=== PATIENT | male | born 1965 | race Caucasian/White ===

== ENCOUNTER 2020-12-16 19:05 | Emergency (ER) | payer MEDICAID, OTHER ==
[~2020-12-16] VITALS: Ht 172.7 cm; Wt 78.8 kg
--- NOTE | 2020-12-16 20:00 | NUR ---
PT REPORTS DRINKING 30 BEERS PER DAY FOR THE LAST 4 DAYS.
[2020-12-16] MEDS ORDERED: LORazepam 1 MG tablet PO ONE (20:25)
[2020-12-16 20:59] LABS: URINE AMPHETAMINE SCREEN NEGATIVE (Neg); URINE BARBITUATE SCREEN NEGATIVE (Neg); URINE BENZODIAZEPINES SCREEN NEGATIVE (Neg); URINE CANNABINOID SCREEN POSITIVE (Neg); URINE COCAINE SCREEN NEGATIVE (Neg); URINE METHADONE SCREEN NEGATIVE (Neg); URINE OPIATE SCREEN NEGATIVE (Neg); URINE PHENCYCLIDINE SCREEN NEGATIVE (Neg)
--- NOTE | 2020-12-16 21:03 | NUR ---
PERSHING MISSILE CREWMEMBER TRIES TO CLARIFY WITH PT ABOUT HIS DRINKING, HE STATES HE HAS DRANK 30 BEERS FOR THE LAST 4 DAYS BUT HAS NOT DRANK BEFORE THAT. wHEN PERSHING MISSILE CREWMEMBER ASKS IF HE COULD CLARIFY IF HE HAS A PRIOR DRINKING HISTORY BEFORE THIS PAST 4 DAYS HE STATES, "ON AND OFF" BUT THEN WALKS AWAY AND SAYS "I HAVE WITHDRAWALS." HE STATES I WAS SUPPOSE TO HOP STRAINER A PRESCRITION FOR DIAZEPAM TODAY AND I DIDN'T CAN I HAVE ONE ? PERSHING MISSILE CREWMEMBER INFORMS PT HE WAS JUST GIVEN ATIVAN 25 MINUTES AGO, HE SAYS, "YEA BUT IT ISNT WORKING AT ALL." PERSHING MISSILE CREWMEMBER ENCOURAGES PT TO GIVE THE MEDICATION A CHANCE TO WORK
[2020-12-16 21:15] LABS: ALANINE AMINOTRANSFERASE 47 U/L (12-78); ALBUMIN 4.3 G/DL (3.4-5.0); ALBUMIN/GLOBULIN RATIO 1.1 (1.1-1.5); ALKALINE PHOSPHATASE 94 IU/L (46-116); ANION GAP 11 (8-16); ASPARTATE AMINO TRANSFERASE 29 U/L (10-37); BILIRUBIN,TOTAL 0.3 MG/DL (0.1-1.0); BLOOD UREA NITROGEN 3 MG/DL (7-18); BUN/CREATININE RATIO 3.8 (5.4-32.0); CALCIUM 8.8 MG/DL (8.5-10.1); CHLORIDE 99 MMOL/L (99-107); CREATININE 0.79 MG/DL (0.60-1.10); ETHANOL 0.201 GM/DL (0.0-0.010); GLUCOSE 107 MG/DL (70-104); POTASSIUM 3.1 MMOL/L (3.5-5.1); SODIUM 136 MMOL/L (135-145); TOTAL CARBON DIOXIDE 26.5 MMOL/L (24-32); TOTAL PROTEIN 8.1 G/DL (6.4-8.2); eGFR > 90 ML/MIN
[2020-12-16] MEDS ORDERED: DIAZ10TA5 PO (21:16)
[2020-12-16] MEDS ORDERED: ZOLP10TA PO (21:16)
[2020-12-16] MEDS ORDERED: LISI-600 PO (21:16)
--- NOTE | 2020-12-16 21:24 | NUR ---
WENT THROUGH EXT MED HISTORY W/ PT. "A LOT OF THAT STUFF I DON'T TAKE IT JUST DOESN'T WORK, I STOPPED TAKING THE LATUDA." HE STATES ALL THAT HE TAKES NOW IS DIAZEPAM, ZOLPIDEM AND LISINOPRIL.
--- NOTE | 2020-12-16 21:27 | NUR ---
PT STATES THAT BEFORE HE DRANK 30 BEERS FOR THE PAST 4 DAYS THAT HE DIDN'T BEEN DRINKING FOR "1 OR 2 MONTHS". HE STATES "I HATE THIS FEELING I JUST WISH I COULD END IT ALL. I TRIED TAKING AMBIEN LAST WEEK TO END IT BUT IT DIDN'T WORK."
[2020-12-16 21:29] LABS: BASOPHILS % (AUTO) 0.2 % (0-1); EOSINOPHILS % (AUTO) 0.2 % (0-6); HEMATOCRIT 44.2 % (42.0-52.0); HEMOGLOBIN 15.6 g/dl (14.0-17.9); LYMPHOCYTES # (AUTO) 1.7 X10'3 (1.1-4.8); LYMPHOCYTES % (AUTO) 23.7 % (21-51); MEAN CORPUSCULAR HEMOGLOBIN 32.5 PG (27.0-31.0); MEAN CORPUSCULAR HGB CONC 35.2 g/dL (33.0-36.5); MEAN CORPUSCULAR VOLUME 92.2 FL (78-98); MEAN PLATELET VOLUME 8.2 FL (7.4-10.4); MONOCYTES # (AUTO) 1.1 X10'3 (0-0.9); MONOCYTES % (AUTO) 14.3 % (2-12); NEUTROPHILS # (AUTO) 4.5 X10'3 (1.8-7.7); NEUTROPHILS % (AUTO) 61.6 % (42-75); PLATELET COUNT 354 X10'3 (140-440); RED BLOOD COUNT 4.79 X10'6 (4.70-6.10); RED CELL DISTRIBUTION WIDTH 13.4 % (11.5-14.5); WHITE BLOOD COUNT 7.4 X10'3 (4.5-11.0)
[2020-12-16] MEDS ORDERED: zolpidem 5mg tablet PO ONE (21:50)
--- NOTE | 2020-12-16 22:33 | NUR ---
lying on left side, eyes closed even and unlabored respirations. No signs of distress.
[2020-12-17] MEDS: diazepam 5mg tablet PO PRN ×2 (01:14→08:09)
--- NOTE | 2020-12-17 01:45 | NUR ---
Pt request PRN valium for anxiety, medication given
--- NOTE | 2020-12-17 03:00 | NUR ---
Pt wakes up to use the restroom and requests "more medication for my withdrawals" pt reminded he can only get valium 10mg twice a day and he has already taken one dose.
--- NOTE | 2020-12-17 05:30 | NUR ---
Pt wakes up again uses the restroom and asks if he can get more medication for "withdrawals." no tremors observed, pt's BP is 147/78. Assessment Technician asks if at home he was taking his medication more frequently than prescribed and he says "no." Assessment Technician encourages him to try to lay down and he agrees,.
[2020-12-17] MEDS ORDERED: potassium Cl 20 mEq SR tablet PO STA (05:50)
--- NOTE | 2020-12-17 06:33 | NUR ---
PT SLEEPING AND IS NOT SHOWING ANY SIGNS OF DISTRESS OR DISCOMFORT. WILL CONT TO MONITOR.
[2020-12-17] MEDS ORDERED: lisinopril 20mg tablet PO SCH (08:00)
--- NOTE | 2020-12-17 08:12 | NUR ---
PT SAYS HE IS STILL HAVING SLIGHT FEELINGS OF A PANICK ATTACK AND ANXIETY, BUT THE SUICIDAL FEELINGS HE WAS HAVING WHEN FIRST ARRIVING TO [facility] HAVE GONE AWAY. INSTRUCTED HIM TO PLEASE KEEP ME UPDATED ON HOW HE IS FEELING; VERBALIZED UNDERSTANDING. PT REQUESTED HIS VALIUM DOSE; EXPLAINED TO PATIENT THAT THIS MED IS ONLY TO BE TAKEN BID/ TWICE A DAY AND THAT IF HE RECEIVES A DOSE NOW HE WON'T BE ABLE TO TAKE IT AGAIN TILL THIS EVENING; PT AGREES AND UNDERSTANDS. RN WILL CONT TO MONITOR PT STATUS.
--- NOTE | 2020-12-17 08:31 | NUR ---
SUSY GARDINER, EVALUATING PATIENT
--- NOTE | 2020-12-17 08:50 | NUR ---
PT TALKING WITH LILA OLIVER, COUSIN.
--- NOTE | 2020-12-17 09:15 | NUR ---
DR. CAMPBELL BEDSIDE EVALUATING PATIENT. DETERMINED HE IS SAFE FOR DISCHARGE ALONG WITH [facility] WORK[employer], SUSY. PT'S COUSIN CALLED FOR PICKUP- SHE SAYS SHE WILL BE HOUR+ UNTIL SHE GETS HERE. PT UPDATED. WILL MONITOR.
[2020-12-17 09:26] VITALS: BP 147/78
--- NOTE | 2020-12-17 10:18 | NUR ---
CALLED PT'S RIDE, WILL BE HERE WITHIN 30 MIN
--- NOTE | 2020-12-17 10:18 | NUR ---
PT RESTING COMFORTABLY. DOES NOT SEEM TO BE IN ANY DISTRESS OR DISCOMFORT.
--- NOTE | 2020-12-17 11:16 | NUR ---
CONTACTED PT'S RIDE- SHE IS 20 MIN AWAY. WILL CONT TO MONITOR.
[2020-12-17] MEDS ORDERED: zolpidem 5mg tablet PO SCH (21:00)
== END 2020-12-17 11:46 ==
LOC: ER 19:06
DX: R45.851 Suicidal ideations (principal); F10.10 Alcohol abuse, uncomplicated; I10 Essential (primary) hypertension; F41.9 Anxiety disorder, unspecified; F17.200 Nicotine dependence, unspecified, uncomplicated; Z98.890 Other specified postprocedural states; Z72.89 Other problems related to lifestyle; Z79.899 Other long term (current) drug therapy
CPT/HCPCS: 36415; 80053; 80305; 80320; 85025; 99285

== ENCOUNTER 2024-06-28 02:59 | Emergency (ER) | payer MEDICAID ==
[~2024-06-28] VITALS: Ht 172.7 cm; Wt 81.8 kg
[~2024-06-28 02:59] MED LIST: DIAZ10TA5 PO; LISI20TA28 PO; ZOLP10TA PO
[2024-06-28 03:45] LABS: BASOPHILS % (AUTO) 0.2 % (0-1); EOSINOPHILS % (AUTO) 0.1 % (0-6); HEMATOCRIT 48.3 % (42.0-52.0); HEMOGLOBIN 16.8 g/dl (14.0-17.9); LYMPHOCYTES # (AUTO) 0.4 X10'3 (1.1-4.8); LYMPHOCYTES % (AUTO) 4.7 % (21-51); MEAN CORPUSCULAR HEMOGLOBIN 32.4 PG (27.0-31.0); MEAN CORPUSCULAR HGB CONC 34.7 g/dL (33.0-36.5); MEAN CORPUSCULAR VOLUME 93.5 FL (78-98); MEAN PLATELET VOLUME 7.4 FL (7.4-10.4); MONOCYTES # (AUTO) 0.9 X10'3 (0-0.9); MONOCYTES % (AUTO) 10.3 % (2-12); NEUTROPHILS # (AUTO) 7.4 X10'3 (1.8-7.7); NEUTROPHILS % (AUTO) 84.7 % (42-75); PLATELET COUNT 129 X10'3 (140-440); RED BLOOD COUNT 5.17 X10'6 (4.70-6.10); RED CELL DISTRIBUTION WIDTH 13.5 % (11.5-14.5); WHITE BLOOD COUNT 8.7 X10'3 (4.5-11.0)
[2024-06-28 03:54] LABS: ALBUMIN 3.6 G/DL (3.4-5.0); ANION GAP 19 (8-16); BLOOD UREA NITROGEN 11 MG/DL (7-18); BUN/CREATININE RATIO 9.4 (10.0-20.0); CALCIUM 8.9 MG/DL (8.5-10.1); CHLORIDE 88 MMOL/L (99-107); CREATININE 1.17 MG/DL (0.60-1.10); ETHANOL 167 MG/DL (<10); GLUCOSE 141 MG/DL (70-104); SODIUM 127 MMOL/L (135-145); TOTAL CARBON DIOXIDE 20.4 MMOL/L (24-32); eCRCL 67 ML/MIN; eGFR 64 ML/MIN
[2024-06-28 03:55] LABS: POTASSIUM 2.7 MMOL/L (3.5-5.1)
[2024-06-28] MEDS: OLANZapine 5mg rapidly disint. tablet PO ONE (04:21)
[2024-06-28] MEDS: potassium Cl 20 mEq SR tablet PO ONE (04:22)
[2024-06-28] MEDS: ondansetron/PF 4mg/2ml inj IV ONE (04:34)
[2024-06-28 04:40] LABS: URINE AMPHETAMINE SCREEN NEGATIVE (Neg); URINE BARBITUATE SCREEN NEGATIVE (Neg); URINE BENZODIAZEPINES SCREEN NEGATIVE (Neg); URINE CANNABINOID SCREEN NEGATIVE (Neg); URINE COCAINE SCREEN NEGATIVE (Neg); URINE METHADONE SCREEN NEGATIVE (Neg); URINE OPIATE SCREEN NEGATIVE (Neg); URINE PHENCYCLIDINE SCREEN NEGATIVE (Neg)
[2024-06-28] MEDS: diphenhydrAMINE 50 mg/ml inj IV ONE (04:46)
[2024-06-28] MEDS: LORazepam 2 mg/ml vial IM ONE (04:46)
[2024-06-28] MEDS: potassium Cl 40MEQ/1/2NS 520ml 520 ML IV SCH (04:47)
[2024-06-28] MEDS: normal saline 1000ML IV soln IVB ONE (04:47)
[2024-06-28] MEDS ORDERED: AMLO5TAB16 PO (05:35)
[2024-06-28] MEDS ORDERED: FLO0.4C PO (05:35)
[2024-06-28] MEDS ORDERED: CLON1TAB12 PO (05:35)
[2024-06-28] MEDS ORDERED: FLUO40CA PO (05:35)
[2024-06-28] MEDS ORDERED: OMEP20CA16 PO (05:35)
[2024-06-28] MEDS ORDERED: CLON1TAB13 PO (05:35)
[2024-06-28] MEDS ORDERED: ROSU20TA73 PO (05:35)
[2024-06-28] MEDS ORDERED: potassium bicarbonate/cit acid 25mEq tablet.effervescent PO SCH (07:55)
[2024-06-28] MEDS ORDERED: clonazePAM 1mg tablet PO SCH (08:00)
[2024-06-28] MEDS: FLUoxetine 20mg capsule PO SCH (08:27)
[2024-06-28] MEDS: tamsulosin 0.4mg capsule PO SCH (08:28)
[2024-06-28] MEDS: amLODIPine 5mg tablet PO SCH (08:28)
[2024-06-28] MEDS: lisinopril 20mg tablet PO SCH (08:28)
[2024-06-28] MEDS: pantoprazole 40mg Tablet.DR PO SCH (08:29)
[2024-06-28] MEDS: clonazePAM 1mg tablet PO SCH (08:29)
[2024-06-28] MEDS: potassium bicarbonate/cit acid 25mEq tablet.effervescent PO ONE (08:30)
[2024-06-28] MEDS: ROSUVASTATIN CALCIUM 5 MG TABLET PO SCH (08:30)
[2024-06-28] MEDS: diazepam inj 5 MG/ML inj. IV ONE (08:40)
[2024-06-28] MEDS: HYDROcodone/acetaminophen 5mg/325mg tablet PO ONE (10:34)
[2024-06-28 10:47] LABS: ALBUMIN 3.3 G/DL (3.4-5.0); ANION GAP 7 (8-16); BLOOD UREA NITROGEN 10 MG/DL (7-18); BUN/CREATININE RATIO 9.3 (10.0-20.0); CALCIUM 8.5 MG/DL (8.5-10.1); CHLORIDE 93 MMOL/L (99-107); CREATININE 1.07 MG/DL (0.60-1.10); GLUCOSE 115 MG/DL (70-104); POTASSIUM 4.1 MMOL/L (3.5-5.1); SODIUM 130 MMOL/L (135-145); TOTAL CARBON DIOXIDE 29.6 MMOL/L (24-32); eCRCL 73 ML/MIN; eGFR 71 ML/MIN
[2024-06-28] MEDS: ringers solution, lacted 1,000 ML IV ONE (11:13)
[2024-06-28] MEDS: ketorolac trometh. 30mg/ml inj. IV ONE (12:16)
[2024-06-28] MEDS: diazepam 5mg tablet PO PRN (14:34)
[2024-06-28] MEDS: propranolol 10mg tablet PO ONE (15:59)
[2024-06-28] MEDS: gabapentin 100mg capsule PO ONE (15:59)
[2024-06-28] MEDS ORDERED: GABA300C PO (17:24)
[2024-06-28] MEDS ORDERED: PROP10TA10 PO (17:24)
[2024-06-28 17:41] VITALS: BP 130/80; PULSE 95; RESP 17; TEMP 98.7; O2SAT 99
[2024-06-28] MEDS ORDERED: zolpidem 5mg tablet PO SCH (21:00)
== END 2024-06-28 17:44 | disposition home or self-care (01) ==
LOC: ER 03:00
DX: F10.10 Alcohol abuse, uncomplicated (principal); R45.1 Restlessness and agitation; R44.1 Visual hallucinations; R45.851 Suicidal ideations; R44.0 Auditory hallucinations; Z20.822 Contact with and (suspected) exposure to COVID-19; E78.00 Pure hypercholesterolemia, unspecified; I10 Essential (primary) hypertension; F41.9 Anxiety disorder, unspecified; F32.A Depression, unspecified; F17.200 Nicotine dependence, unspecified, uncomplicated; Z79.899 Other long term (current) drug therapy
CPT/HCPCS: 36415; 71045; 80048; 80305; 80320; 85025; 87811; 93005; 96361; 96372; 96374; 96375; 99285; J1200; J1885; J2060; J2405; J3360; J3480; J7030; J7120